=== PATIENT | female | born 1950 | race African-American/Black ===

== ENCOUNTER 2024-12-08 01:11 | Emergency (ER) | payer OTHER ==
[~2024-12-08] VITALS: Ht 157.5 cm; Wt 61.6 kg
[2024-12-08 01:38] VITALS: O2SAT 100
[2024-12-08 02:15] LABS: BASOPHILS % 0.6 % (0.0-2.0); EOSINOPHILS % 3.4 % (0.0-5.0); HEMATOCRIT. 38.8 % (36.0-48.0); HEMOGLOBIN. 12.2 g/dL (12.0-16.0); LYMPHOCYTES % 57.8 % (20.0-50.0); MEAN CORPUSCULAR HEMOGLOBIN 25.7 pg (28.0-32.0); MEAN CORPUSCULAR HGB CONC 31.5 g/dL (31.0-37.0); MEAN CORPUSCULAR VOLUME 81.7 fL (81.0-99.0); MEAN PLATELET VOLUME 8.9 fl (7.4-10.4); MONOCYTES % 5.1 % (2.0-8.0); NEUTROPHILS % 33.1 % (40.0-76.0); PLATELET 148 x1000/uL (130-400); RED BLOOD CELL COUNT 4.76 mill/uL (4.2-5.4)
[2024-12-08 02:20] LABS: CHLORIDE 108 mEq/L (98-107); SODIUM 140 mEq/L (136-145)
[2024-12-08 02:21] LABS: CALCIUM 9.6 mg/dL (8.7-10.4); CARBON DIOXIDE 25 mEq/L (21-32)
[2024-12-08 02:26] LABS: CREATININE 0.6 mg/dL (0.6-1.0); GLUCOSE 111 mg/dL (70-105); UREA NITROGEN BLOOD 13 mg/dL (9-23)
[2024-12-08 02:47] LABS: TROPONIN I HIGH SENSITIVITY 30 ng/L (3.0-34)
[2024-12-08] MEDS: AMLODIPINE 5MG TABLET PO ONE (02:53)
[2024-12-08] MEDS ORDERED: AMLO5TAB88 MT (04:23)
[2024-12-08 04:31] VITALS: BP 166/72; PULSE 58; RESP 17; TEMP 36.8; O2SAT 100
== END 2024-12-08 04:53 | disposition home or self-care (01) ==
LOC: ER 01:11
DX: R07.89 Other chest pain (principal); I10 Essential (primary) hypertension; Z90.49 Acquired absence of other specified parts of digestive tract
CPT/HCPCS: 36415; 71045; 80048; 84484; 85025; 93005; 99285